=== PATIENT | female | born 1975 | race American Indian/Alaskan Native ===

== ENCOUNTER → 2022-06-25 13:34 | Outpatient (CLI) | payer OTHER, SELFPAY ==
--- NOTE | 2022-06-25 13:35 | DI.MG.S_ITS ---
BILATERAL DIGITAL DIAGNOSTIC MAMMOGRAM 3D/2D: 06/25/2022 CLINICAL: Right breast lump. Comparison is made to exams dated: 05/13/2016 ultrasound, 11/08/2015 ultrasound, and 11/08/2015 mammogram - [facility]. There are scattered areas of fibroglandular density in both breasts (category b / 25%-50% glandular tissue). No significant masses, calcifications, or other findings are seen in either breast. Specifically, no finding to correspond to the patient's palpable abnormality. Mammograms are otherwise stable. IMPRESSION: INCOMPLETE: NEEDS ADDITIONAL IMAGING EVALUATION There is no abnormality seen in the right breast to correspond with the palpable abnormality at 6 o'clock in the posterior depth, however, ultrasound is recommended. This was performed immediately following this exam. Based on the Tyrer Cuzick model (a risk assessment model) the patient's lifetime risk is 10.1% and her 10 year risk is 1.8%. According to the ACR, ACS, and NCCN guidelines, an annual breast MRI exam along with mammogram is recommended if the patient's lifetime risk is 20% or greater. This exam was interpreted at Station ID: [id number]. NOTE: For mammograms, a report in lay terms will be sent to the patient. Approximately 15% of breast malignancies will not be visualized mammographically. In the management of a palpable breast mass, a negative mammogram must not discourage biopsy of a clinically suspicious lesion. Electronically Signed By: Jess art/:06/25/2022 14:43:42 ACR BI-RADS Category 0: Incomplete 3340F
--- NOTE | 2022-06-25 13:35 | DI.US.S_ITS ---
LIMITED ULTRASOUND OF RIGHT BREAST: 06/25/2022 CLINICAL: Lump in the right breast. Comparison is made to exams dated: 06/25/2022 mammogram, 05/13/2016 ultrasound, 11/08/2015 ultrasound, and 11/08/2015 mammogram - [facility]. Ultrasound of the right breast 6 o'clock region was performed. Sousa scale images of the real-time examination were reviewed. No significant abnormalities were seen sonographically in the right breast. Specifically, no finding to correspond to the patient's resolved palpable abnormality. IMPRESSION: NEGATIVE There is no sonographic correlate to the patient's palpable abnormality and no evidence of malignancy. A 1 year screening mammogram is recommended. Findings and recommendations were conveyed to the patient at time of exam. This exam was interpreted at Station ID: [id number]. Electronically Signed By: Jess art/:06/25/2022 14:57:05 letter sent: Normal Exam Ultrasound BI-RADS: 1 Negative
== END ==
PROVIDERS: PCP Family Medicine; Referring Provider Physician Assistant; Visit Provider Physician Assistant
DX: N63.10 Unspecified lump in the right breast, unspecified quadrant (principal); R22.31 Localized swelling, mass and lump, right upper limb
CPT/HCPCS: 76642; 77066; G0279

== ENCOUNTER 2023-03-08 12:33 | Emergency (ER) | payer OTHER, SELFPAY ==
[2023-03-08 12:44] VITALS: BP 172/91; PULSE 95; RESP 20; TEMP 37.2; O2SAT 99; BMI 29.9
--- NOTE | 2023-03-08 12:50 | DI.RAD.S_ITS ---
PROCEDURE: XR CHEST 1V INDICATIONS: chest pain TECHNIQUE: One view of the chest was acquired. COMPARISON: None. FINDINGS: Surgical changes and devices: None. Lungs and pleura: Lungs are clear. No pleural effusions or pneumothorax. Mediastinum: Mediastinal contours appear normal. Heart size is normal. Bones and chest wall: No suspicious bony lesions. Cholecystectomy clips. Overlying soft tissues appear unremarkable. IMPRESSION: No acute cardiopulmonary process. Dictated by: Amando Mederos M.D. on 03/08/2023 at 13:32 Approved by: Amando Mederos M.D. on 03/08/2023 at 13:33
[2023-03-08] MEDS: MAG HYDROX/ALUMINUM/SIMETH SUS 20 ML, LIDOCAINE VISCOUS 2% 15 ML PO (13:27)
[2023-03-08 13:31] LABS: Add Manual Diff / Slide Review NO; Basophils Absolute Auto 0 /uL (0-100); Basophils Percent Auto 0.6 % (0-2); Eosinophils Absolute Auto 100 /uL (0-450); Eosinophils Percent Auto 0.6 % (2-4); Hematocrit 40.6 % (36-46); Lymphocytes Absolute Auto 1600 /uL (1100-4500); Lymphocytes Percent Auto 20.5 % (25-40); Mean Corpuscular HGB Conc 34.4 % (30-36); Mean Corpuscular Hemoglobin 29.9 PG (26-34); Mean Corpuscular Volume 86.9 fL (80-100); Monocytes Absolute Auto 300 /uL (0-900); Monocytes Percent Auto 3.8 % (3-14); Neutrophils Absolute Auto 5800 /uL (1500-7000); Neutrophils Percent Auto 74.5 % (50-75); Platelet Count 343 X10^3/uL (150-400); Red Blood Cell Count 4.68 X10^6/uL (4.0-5.2); Red Cell Distribution Width 12.7 % (11.6-14.8); White Blood Cell Count 7.8 X10^3/uL (4.5-11.0)
[2023-03-08 13:41] LABS: INR 1.1 (0.9-1.3); Prothrombin Time 12.1 SECONDS (9.4-12.5)
[2023-03-08 13:44] LABS: PTT Partial Thromboplastin Tim 34 SECONDS (25.1-36.5)
[2023-03-08 13:51] LABS: Alanine Aminotransferase 42 IU/L (<35); Albumin 4.7 g/dL (3.5-5.0); Albumin Globulin Ratio 1.3 (1.0-2.8); Alkaline Phosphatase 65 U/L (38-126); Aspartate Aminotransferase 35 IU/L (14-36); BUN Creatinine Ratio 14.9 (6-22); Bilirubin Total 0.7 mg/dL (0.2-1.3); Blood Urea Nitrogen 10 mg/dL (7-17); Calcium 9.7 mg/dL (8.4-10.2); Carbon Dioxide 24 mmol/L (22-32); Chloride 106 mmol/L (98-107); Creatine Kinase 73 U/L (30-135); Estimated Glomerular Filt Rate > 60 mL/min (>60); Globulin 3.5 g/dL (1.7-4.1); Glucose 108 mg/dL (70-100); HEMOLYSIS < 15 (0-50); Lipase 107 U/L (23-300); Magnesium 1.9 mg/dL (1.6-2.3); Potassium 3.8 mmol/L (3.4-5.1); Sodium 139 mmol/L (137-145); Total Protein 8.2 g/dL (6.3-8.2)
[2023-03-08 14:02] LABS: Troponin I < 0.012 ng/mL (0.01-0.034)
[2023-03-08 14:55] LABS: Creatine Kinase 72 U/L (30-135)
[2023-03-08 15:08] LABS: Troponin I < 0.012 ng/mL (0.01-0.034)
[2023-03-08 15:38] VITALS: BP 160/92; PULSE 93; O2SAT 98
--- NOTE | 2023-03-08 17:46 | ED.CHESTPAIN ---
HPI - Chest Pain <Natalie Weeks PA-C - Last Filed: 03/08/23 17:52> General Chief Complaint: Chest Pain Stated Complaint: chest pain Time Seen by Provider: 03/08/23 12:58 Source: patient Mode of arrival: Ambulatory Limitations: no limitations History of Present Illness HPI narrative: 47-year-old female with past medical history GERD, anxiety presents to the ED with 2 days of acid reflux, epigastric pain and left-sided chest pain. Patient denies shortness of breath, vomiting, lightheadedness, dizziness, syncope. Patient endorses sporadic nausea. Patient states that she drank some hot chocolate from [employer] yesterday, following which she had an acute exacerbation of her acid reflux, inadequately controlled by Pepmel MIGUEL. However, since patient felt the epigastric pain was radiating to the left side of her chest, she presents to the ED for further evaluation. Patient also states that her anxiety feels exacerbated given the circumstances of the GERD exacerbation. Related Data Previous Rx's Medication Instructions Recorded escitalopram oxalate 5 mg tablet 5 mg PO DAILY #30 tabs 01/27/22 (Lexapro) propranolol 10 mg tablet 10 mg PO TID PRN anxiety #30 tabs 01/27/22 lorazepam 0.5 mg tablet 0.25 mg (1/2 x 0.5 mg) PO BID #30 07/01/22 tabs levonorgestrel 0.15 mg-ethinyl 1 tab PO DAILY #91 tabs 12/11/22 estradiol 30 mcg tablets,3 mos pack(91) famotidine 40 mg tablet 40 mg PO BID #60 tabs 01/28/23 Allergies Allergy/AdvReac Type Severity Reaction Status Date / Time latex [LATEX] Allergy Unknown swelling, Verified 06/02/22 10:43 redness, itchy naproxen [NAPROXEN] AdvReac Unknown ANXIETY Verified 06/02/22 10:43 ibuprofen AdvReac severe Verified 03/08/23 12:56 headaches Review of Systems <Natalie Weeks PA-C - Last Filed: 03/08/23 17:52> Constitutional Constitutional: Denies chills, Denies fatigue, Denies fever(s), Denies frequent falls, Denies lethargy and Denies weakness Eyes Eyes: Denies change in vision, Denies eye discharge, Denies irritation and Denies loss of vision ENT Ears, Nose, Mouth, and Throat: Denies change in voice, Denies dizziness, Denies neck pain, Denies sore throat and Denies throat swelling Cardiovascular Cardiovascular: Reports chest pain, Denies irregular heart rhythm, Denies lightheadedness, Denies palpitations, Denies dyspnea, Denies dyspnea on exertion and Denies orthopnea Respiratory Respiratory: Denies cough, Denies dyspnea, Denies dyspnea on exertion and Denies wheezing Gastrointestinal Gastrointestinal: Reports abdominal pain, Denies change in bowel habits, Denies diarrhea, Reports nausea and Denies vomiting Musculoskeletal Musculoskeletal: Denies neck pain and Denies numbness Integumentary/Breasts Skin/Breast: Denies pruritus, Denies erythema, Denies rash and Denies wounds Neurologic Neurologic: Denies behavioral changes, Denies confusion, Denies dizziness, Denies frequent falls, Denies loss of vision, Denies numbness and Denies weakness Psychiatric Psychiatric: Reports anxiety, Denies behavioral changes, Denies confusion, Denies depression, Denies homicidal ideation and Denies suicidal ideation Endocrine Endocrine: Denies fatigue, Denies flushing and Denies palpitations Hematologic/Lymphatic Hematologic/Lymphatic: Denies easy bruising Allergic/Immunologic Allergic/Immunologic: Denies urticaria, Denies throat swelling and Denies wheezing Patient History <Natalie Weeks PA-C - Last Filed: 03/08/23 17:52> Medical History Anxiety GERD (gastroesophageal reflux disease) Surgical History History of dilation and curettage (01/18/15) Status post delivery (2013) Status post delivery (2006) Social History marital status: unmarried,living together number of children: 2 household members: significant other and children lives independently: Yes caregiver/support person: No housing: house pets and animals: No education level: college occupational status: employed current occupational exposures/hazards: No emory/sikhism: anglican special emory needs: No leisure activities: sports seatbelt use: always helmet use: Yes water heater temp set < 120 deg: Yes working smoke detector in home: Yes fire extinguisher in home: Yes carbon monox detector in home: Yes firearms in home: No do you feel safe at home: Yes in current or past relationships, have you been: threatened Smoking Status: Former smoker second hand exposure: No alcohol intake: never substance use type: does not use during the past year weight has: remained stable well-balanced diet: about half the time daily servings fruits/ve-1 caffeine: No eating out: 1-3 times/week Type(s) of exercise: walking frequency: 1-2 times per week duration: 15-30 minutes/day Smoking Status: Former smoker alcohol intake frequency: 0-2 drinks per day Substance Use Type: does not use Exam <Natalie Weeks PA-C - Last Filed: 03/08/23 17:52> Narrative Exam Narrative: Const General:?cooperative, healthy appearing and comfortable [facility] Head:?normal to inspection Ears:?hearing grossly normal bilaterally Nose:?external nose normal Face and sinus:?normal facial exam and sinuses nontender Mouth:?oral mucosae normal Throat:?posterior oropharynx normal Eyes General:?appearance normal, both eyes and all related structures Neck Neck:?normal visual inspection and no lymphadenopathy noted Resp Effort & Inspection:?normal respiratory effort Auscultation:?clear to auscultation bilaterally Cardio Rate:?regular rate Rhythm:?regular rhythm Neuro General:?patient alert, patient awake and patient oriented x3 Initial Vital Signs Initial Vital Signs: Vital Signs Temperature 99 F 03/08/23 12:44 Pulse Rate 95 H 03/08/23 12:44 Respiratory Rate 20 03/08/23 12:44 Blood Pressure 172/91 H 03/08/23 12:44 Pulse Oximetry 99 03/08/23 12:44 Oxygen Delivery Method Room Air 03/08/23 12:44 <Arcelia Belle DO - Last Filed: 03/09/23 09:32> Initial Vital Signs Initial Vital Signs: Vital Signs Temperature 99 F 03/08/23 12:44 Pulse Rate 95 H 03/08/23 12:44 Respiratory Rate 20 03/08/23 12:44 Blood Pressure 172/91 H 03/08/23 12:44 Pulse Oximetry 99 03/08/23 12:44 Oxygen Delivery Method Room Air 03/08/23 12:44 Course <DAVID Peña Last Filed: 03/08/23 17:52> Orders Ordered: Discontinued Medications Aspirin (Aspirin 81 Mg Chew Tab) 324 mg PO NOW ONE Stop: 03/08/23 12:51 Last Admin: 03/08/23 13:27 Dose: Not Given Documented By: MIRANDA Al Hydrox/Mg Hydrox/Simethicone 20 ml/ Lidocaine HCl 15 ml 0 ml PO NOW ONE Stop: 03/08/23 13:09 Last Admin: 03/08/23 13:27 Dose: 35 ml Documented By: MIRANDA Vital Signs Vital signs: Vital Signs - 8 hr 03/08/23 12:44 03/08/23 15:38 Temperature 99 F Pulse Rate 95 H 93 H Respiratory Rate 20 Blood Pressure 172/91 H 160/92 H Pulse Oximetry 99 98 Oxygen Delivery Method Room Air <Arcelia Belle DO - Last Filed: 03/09/23 09:32> Orders Ordered: Discontinued Medications Aspirin (Aspirin 81 Mg Chew Tab) 324 mg PO NOW ONE Stop: 03/08/23 12:51 Last Admin: 03/08/23 13:27 Dose: Not Given Documented By: MIRANDA Al Hydrox/Mg Hydrox/Simethicone 20 ml/ Lidocaine HCl 15 ml 0 ml PO NOW ONE Stop: 03/08/23 13:09 Last Admin: 03/08/23 13:27 Dose: 35 ml Documented By: MIRANDA Vital Signs Vital signs: Vital Signs - 8 hr 03/08/23 12:44 03/08/23 15:38 Temperature 99 F Pulse Rate 95 H 93 H Respiratory Rate 20 Blood Pressure 172/91 H 160/92 H Pulse Oximetry 99 98 Oxygen Delivery Method Room Air MDM - Chest Pain <Natalie Weeks PA-C - Last Filed: 03/08/23 17:52> Lab Data 03/08/23 12:10 03/08/23 12:10 Labs: Lab Results 03/08/23 03/08/23 03/08/23 Range/Units 12:10 14:35 17:20 WBC 7.8 (4.5-11.0) X10^3/uL RBC 4.68 (4.0-5.2) X10^6/uL Hgb 14.0 (12.0-16.0) g/dL Hct 40.6 (36-46) % MCV 86.9 (80-100) fL MCH 29.9 (26-34) PG MCHC 34.4 (30-36) % RDW 12.7 (11.6-14.8) % Plt Count 343 (150-400) X10^3/uL Neut % (Auto) 74.5 (50-75) % Lymph % (Auto) 20.5 L (25-40) % [place] % (Auto) 3.8 (3-14) % Eos % (Auto) 0.6 L (2-4) % Baso % (Auto) 0.6 (0-2) % Neut # (Auto) 5800 (2140-8475) /uL Lymph # (Auto) 1600 (1845-8877) /uL [place] # (Auto) 300 (0-900) /uL Eos # (Auto) 100 (0-450) /uL Baso # (Auto) 0 (0-100) /uL PT 12.1 (9.4-12.5) SECONDS INR 1.1 (0.9-1.3) APTT 34 (25.1-36.5) SECONDS Sodium 139 (137-145) mmol/L Potassium 3.8 (3.4-5.1) mmol/L Chloride 106 (98-107) mmol/L Carbon Dioxide 24 (22-32) mmol/L BUN 10 (7-17) mg/dL Creatinine 0.67 (0.52-1.04) mg/dL Estimated GFR > 60 (>60) mL/min BUN/Creatinine Ratio 14.9 (6-22) Glucose 108 H (70-100) mg/dL Hemoglobin A1c 5.1 (4.0-6.0) % Calcium 9.7 (8.4-10.2) mg/dL Magnesium 1.9 (1.6-2.3) mg/dL Total Bilirubin 0.7 (0.2-1.3) mg/dL AST 35 (14-36) IU/L ALT 42 H (<35) IU/L Alkaline Phosphatase 65 (38-126) U/L Total Creatine Kinase 73 72 (30-135) U/L Troponin I < 0.012 < 0.012 (0.01-0.034) ng/mL Total Protein 8.2 (6.3-8.2) g/dL Albumin 4.7 (3.5-5.0) g/dL Globulin 3.5 (1.7-4.1) g/dL Albumin/Globulin Ratio 1.3 (1.0-2.8) Lipase 107 (23-300) U/L MDM Narrative Medical decision making narrative: 47-year-old female with past medical history GERD, anxiety presents to the ED with 2 days of acid reflux, epigastric pain and left-sided chest pain. While patient's symptoms are most consistent with GERD, will rule out ACS versus other. Will obtain labs, EKG, chest x-ray, troponin. Will reassess. EKG x2 were sinus tachycardia, otherwise normal EKG. Chest x-ray without acute findings. Troponin x2, labs within normal limits. Patient's symptoms improved somewhat with GI cocktail. Recommend continuing Pepcid AC, trialing omeprazole. Lifestyle modifications were discussed with patient. Recommend follow-up with PCP and GI specialist as soon as possible. ED return precautions discussed with patient. Patient verbalized understanding. Medical records reviewed: Yes <Arcelia Belle, - Last Filed: 03/09/23 09:32> Lab Data Labs: Lab Results 03/08/23 03/08/23 03/08/23 Range/Units 12:10 14:35 17:20 WBC 7.8 (4.5-11.0) X10^3/uL RBC 4.68 (4.0-5.2) X10^6/uL Hgb 14.0 (12.0-16.0) g/dL Hct 40.6 (36-46) % MCV 86.9 (80-100) fL MCH 29.9 (26-34) PG MCHC 34.4 (30-36) % RDW 12.7 (11.6-14.8) % Plt Count 343 (150-400) X10^3/uL Neut % (Auto) 74.5 (50-75) % Lymph % (Auto) 20.5 L (25-40) % [place] % (Auto) 3.8 (3-14) % Eos % (Auto) 0.6 L (2-4) % Baso % (Auto) 0.6 (0-2) % Neut # (Auto) 5800 (5084-4860) /uL Lymph # (Auto) 1600 (0051-9372) /uL [place] # (Auto) 300 (0-900) /uL Eos # (Auto) 100 (0-450) /uL Baso # (Auto) 0 (0-100) /uL PT 12.1 (9.4-12.5) SECONDS INR 1.1 (0.9-1.3) APTT 34 (25.1-36.5) SECONDS Sodium 139 (137-145) mmol/L Potassium 3.8 (3.4-5.1) mmol/L Chloride 106 (98-107) mmol/L Carbon Dioxide 24 (22-32) mmol/L BUN 10 (7-17) mg/dL Creatinine 0.67 (0.52-1.04) mg/dL Estimated GFR > 60 (>60) mL/min BUN/Creatinine Ratio 14.9 (6-22) Glucose 108 H (70-100) mg/dL Hemoglobin A1c 5.1 (4.0-6.0) % Calcium 9.7 (8.4-10.2) mg/dL Magnesium 1.9 (1.6-2.3) mg/dL Total Bilirubin 0.7 (0.2-1.3) mg/dL AST 35 (14-36) IU/L ALT 42 H (<35) IU/L Alkaline Phosphatase 65 (38-126) U/L Total Creatine Kinase 73 72 (30-135) U/L Troponin I < 0.012 < 0.012 (0.01-0.034) ng/mL Total Protein 8.2 (6.3-8.2) g/dL Albumin 4.7 (3.5-5.0) g/dL Globulin 3.5 (1.7-4.1) g/dL Albumin/Globulin Ratio 1.3 (1.0-2.8) Lipase 107 (23-300) U/L Discharge Plan Departure Patient Disposition: Home Clinical Impression: GERD (gastroesophageal reflux disease) Qualifiers: Esophagitis presence: esophagitis presence not specified Qualified Code(s): K21.9 - Gastro-esophageal reflux disease without esophagitis Instructions: DI for Gastroesophageal Reflux Disease (GERD) Activity Restrictions/Additional Instructions: You were evaluated in the ED today for acid reflux and chest pain. Your chest x-ray, EKG and labs were normal. It appears that your symptoms are most likely due to the acid reflux. You may continue to take omeprazole and or or Pepcid AC for the GERD. It might be helpful to have smaller but more frequent meals, sleep with your head inclined up, avoid foods that trigger your acid reflux. Please follow-up with your PCP as soon as possible. Please also follow-up with a GI specialist for further workup. Return to the ED if you have worsening symptoms, chest pain, shortness of breath. Prescriptions: No Action escitalopram oxalate [Lexapro] 5 mg tablet 5 mg PO DAILY Qty: 30 2RF propranolol 10 mg tablet 10 mg PO TID PRN (Reason: anxiety) Qty: 30 2RF lorazepam 0.5 mg tablet 0.25 mg PO BID Qty: 30 0RF levonorgestrel-ethinyl estrad 0.15 mg-30 mcg (91) tablets,dose pack,3 month 1 tab PO DAILY Qty: 91 0RF famotidine 40 mg tablet 40 mg PO BID Qty: 60 0RF Referrals: Larua Goldsmith MD [Primary Care Provider] - Stand Alone Forms: Patient Portal/API ED Sign-out <Arcelia Belle DO - Last Filed: 03/09/23 09:32> Cosign ED Attending [place] Attestation: I was immediately available in the department for consultation.
[2023-03-08 19:26] LABS: Hemoglobin A1C% w Est Avg Glu 5.1 % (4.0-6.0)
== END 2023-03-08 15:39 | disposition home or self-care (01) ==
PROVIDERS: Emergency Medicine; Emergency Provider Student in an Organized Health Care Education/Training Program; PCP Family Medicine
DX: K21.9 Gastro-esophageal reflux disease without esophagitis (principal); R07.9 Chest pain, unspecified
CPT/HCPCS: 71045; 80053; 82550; 83036; 83690; 83735; 84484; 85025; 85610; 85730; 93005; 93010; 99283; 99284